=== PATIENT | female | born 1940 | race Caucasian/White ===

== ENCOUNTER 2023-12-03 09:42 | Emergency (ER) | payer OTHER, SELFPAY ==
[2023-12-03 09:46] VITALS: BP 121/65; PULSE 70; RESP 16; O2SAT 93
--- NOTE | 2023-12-03 09:53 | ECG_ITS ---
[facility] Test Date: 2023-12-03 Pat Name: Julissa Salazar Department: Room: Gender: Female Executive Chef Assistant: : 1940 Requested By: Mary Gonzalez Order Number: [id number] Juliana MD: George Flynn M.D. Measurements Intervals [place] Rate: 66 P: 62 [place]: 223 QRS: 50 QRSD: 81 T: 64 QT: 416 QTc: 438 Interpretive Statements SINUS RHYTHM WITH FIRST DEGREE AV BLOCK Compared to ECG 01/31/2019 21:06:38 First degree AV block now present ST (T wave) deviation no longer present Electronically Signed On 12-03-2023 16:33:46 CAKE MIXER by George Flynn M.D. [id number] f
--- NOTE | 2023-12-03 09:54 | XR_ITS ---
WS: [id number] Exam: XR chest 1V portable [id number] Date/Time of Exam: 12/03/2023 9:54 AM Reason For Exam: cough, COVID Comparison 01/05/2019. Lungs are clear and fully inflated. Normal cardiomediastinal silhouette. No pleural effusions. Region al bony elements are intact. Monitoring leads superimpose the chest. IMPRESSION: 1. No acute cardiopulmonary finding.
--- NOTE | 2023-12-03 10:05 | ED_ITS ---
HPI - General Adult 2 General: Chief complaint: Arrhythmia/Palpitations Stated complaint: irregular heart rate Time Seen by Provider: 12/03/23 09:47 Source: patient and EMS Mode of arrival: EMS Limitations: no limitations History of Present Illness: Patient is an 83-year-old female presents to ED today via EMS from her residential in [place] for complaints of nausea and vomiting. Patient reportedly began feeling nauseous yesterday evening. She states she vomited one time last night and another time this morning. She has not had any diarrhea. She does not complain of abdominal pain. long term report also stated when they checked her pulse it was irregular . EMS states during transport she was normal sinus but did have one episode of a sinus pause . Patient is currently on hospice. Her hospice care company is [employer].. Patient during my examination is complaining of feeling very cold and shivering. She reports some nasal congestion. She has not been running fevers. Documentation shows patient was diagnosed with COVID about two weeks ago. Onset (ago): day(s) (yesterday evening) Severity: mild Relieving factors: none Exacerbating factors: none Associated symptoms: Reports nausea, vomiting and other (chills); Deny chest pain, dyspnea, headache(s), malaise, rash, palpitations or syncope Treatments prior to arrival: none Review of Systems 2 Const: Reports: chills; Denies: fever(s), body aches, fatigue or malaise Eyes: Denies: change in vision, blurry vision, photophobia, floaters or seeing flashes ENMT: Reports: nasal congestion; Denies: throat pain, odynophagia, nasal discharge or sinus pain Card: Denies: chest pain, palpitations, irregular heart rhythm, edema, swelling of feet/ankles, lightheadedness, syncope, pre-syncope or dyspnea on exertion Resp: Denies: dyspnea, productive cough, non-productive cough or chest congestion GI: Reports: nausea and vomiting; Denies: abdominal pain, hematemesis, diarrhea or change in bowel habits : Denies: flank pain, difficulty voiding, dysuria, urinary frequency, urinary urgency or urinary hesitancy Musc: Denies: neck pain, back pain, extremity pain or joint pain Skin/Breast: Denies: rash Neuro: Denies: headache(s) or dizziness PFSH ED 2 PFSH: Medical History Other conjunctivitis Gastro-esophageal reflux disease without esophagitis Body mass index [BMI] 40.0-44.9, adult Morbid (severe) obesity due to excess calories Unspecified dementia, unspecified severity, with agitation Difficulty in walking, not elsewhere classified Alzheimer's disease with late onset Personal history of COVID-19 Dysphagia, oropharyngeal phase Muscle weakness (generalized) Aftercare following joint replacement surgery Angular blepharoconjunctivitis, bilateral Other reduced mobility Chest pain, unspecified Unilateral primary osteoarthritis, left knee Other symbolic dysfunctions Vitamin D deficiency, unspecified Unspecified osteoarthritis, unspecified site Other abnormal and inconclusive findings on diagnostic imaging of breast Surgical History 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 Cataract extraction status, left eye Presence of right artificial knee joint Physical Exam 2 Const: COMMON NORMALS: no acute distress, average body habitus, no limitations, alert and well nourished GENERAL APPEARANCE: cooperative O RIENTATION/CONSCIOUSNESS: Yes awake, Yes oriented to person, Yes oriented to place and Yes Other orientation findings (chronic dementia-at baseline per residential and hospice nurse) HENMT: COMMON NORMALS: normocephalic and atraumatic HEAD & SCALP: normal to inspection, normocephalic and atraumatic FACE & SINUS: normal facial exam Eye: GENERAL EYE: appearance normal, both eyes and all related structures Neck/C-Spine: COMMON NORMALS: full ROM and no lymphadenopathy GENERAL: Yes normal visual inspection Resp: COMMON NORMALS: normal respiratory effort and clear to auscultation bilaterally AUSCULTATION: clear to auscultation bilaterally Cardio: COMMON NORMALS: regular rate and regular rhythm RATE: regular rate RHYTHM: regular rhythm GI: COMMON NORMALS: Normal to inspection, nondistended, normoactive bowel sounds present, Soft to palpation, non-tender, No hepatosplenomegaly present and no masses PALPATION: Yes Soft to palpation and Yes No hepatosplenomegaly present : COMMON NORMALS: Yes no CVA tenderness BLADDER/KIDNEY EXAM: Yes no CVA tenderness Back/Pelvis: COMMON NORMALS: no CVA tenderness and thoracic and lumbar spine normal to inspection Extremity: COMMON NORMALS: normal to inspection, capillary refill normal, no clubbing, cyanosis or edema, no calf tenderness and no pedal edema GENERAL: Y es normal exam except as noted Neuro: SANDRA COMA SCALE: document GCS findings [place] coma scale eye opening: Spontaneous Sandra coma scale verbal response: Orientated [place] coma scale motor response: Obey commands [place] coma scale total score: 15 C OMMON NORMALS: moves all extremities, no focal motor deficits and no sensory deficits noted SENSORIUM/ORIENTATION: Yes alert, Yes oriented to person and Yes oriented to place Skin: COMMON NORMALS: no rashes or lesions noted GENERAL SKIN EXAM: no rashes or lesions noted Course 2 Vital Signs: Vital signs: Vital Signs Pulse Rate 83 12/03/23 12:39 Respiratory Rate 16 12/03/23 12:39 Blood Pressure 153/42 12/03/23 12:39 Pulse Oximetry 100 12/03/23 12:39 Oxygen Delivery Me thod Room Air 12/03/23 12:39 MDM - General Adult Medical Decision Making Patient is an 83-year-old female on hospice here from her residential for complaints of nausea and vomiting. She had 1 episode of vomiting last night as well as one episode this morning. long term report was that when they checked patient's pulse it was irregular . Patient has been in normal sinus on the monitor since arrival. She has no complaints of chest pain or shortness of breath. Her vital signs are stable upon arrival. Blood work overall is unremarkable. She has very minor elevations to her BUN/Cr at 31/1.3 with no recent comparisons. Initial potassium is slightly elevated at 5.4. After fluids this has came down to 4.8. No EKG changes. Her CXR is normal. Her baseline troponin is normal. Her UA does show evidence for infection with a cloudy appearance, trace leukocyte esterase, 40-55 WBCs and 4+ bacteria. She will be placed on antibiotics for this. Patient is stable to go back to residential at this time. Lab Data 12/03/23 10:17 12/03/23 14:18 Laboratory Results WBC 8.30 10^3/uL (3.29-11.43) 12/03/23 10:17 RBC 3.68 10^6/uL (3.85-5.65) L 12/03/23 10:17 Hgb 11.20 g/dL (11.27-16.99) L 12/03/23 10:17 Hct 35.3 % (36-47) L 12/03/23 10:17 MCV 95.9 fl (85-98) 12/03/23 10:17 MCH 30.4 pg (27-33) 12/03/23 10:17 MCHC 31.7 g/dL (30-55) 12/03/23 10:17 RDW 13.3 % (12.1-15.1) 12/03/23 10:17 Plt Count 216 10^3/cmm (157-399) 12/03/23 10:17 MPV 10.3 fL (7.4-10.4) 12/03/23 10:17 Neut % (Auto) 58.7 % 12/03/23 10:17 Lymph % (Auto) 25.7 % 12/03/23 10:17 [place] % (Auto) 8.7 % 12/03/23 10:17 Eos % (Auto) 5.7 % 12/03/23 10:17 Baso % (Auto) 0.8 % 12/03/23 10:17 Neut # (Auto) 4.88 10^3/uL (1.8-7.7) 12/03/23 10:17 Lymph # (Auto) 2.1 10^3/uL (0.8-4.8) 12/03/23 10:17 [place] # (Auto) 0.7 10^3/uL (0.2-0.9) 12/03/23 10:17 Eos # (Auto) 0.5 10^3/uL (0.0-0.8) 12/03/23 10:17 Baso # (Auto) 0.1 10^3/uL (0.0-0.1) 12/03/23 10:17 Nucleated RBC % (auto) 0 % 12/03/23 10:17 Nucleated RBCs # 0.0 /100WBC 12/03/23 10:17 Sodium 137 mmol/L (136-145) 12/03/23 10:17 Potassium 4.8 mmol/L (3.5-5.1) 12/03/23 14:18 Chloride 102 mmol/L (98-107) 12/03/23 10:17 Carbon Dioxide 24 mmol/L (22-29) 12/03/23 10:17 Anion Gap 16.4 (5-19) 12/03/23 10:17 BUN 31 mg/dL (8-23) H 12/03/23 10:17 Creatinine 1.3 mg/dL (0.5-0.9) H 12/03/23 10:17 GFR Calculation Not Reportable 12/03/23 10:17 Glucose 110 mg/dL (65-115) 12/03/23 10:17 POC Glucose 101 mg/dL (70-110) 12/03/23 10:16 Calculated Osmolality 291 mOsm/kg (285-295) 12/03/23 10:17 Calcium 10.0 mg/dL (8.5-10.5) 12/03/23 10:17 Total Bilirubin 0.4 mg/dL (0.15-1.2) 12/03/23 10:17 AST 14 U/L (0-32) 12/03/23 10:17 ALT 7 U/L (0-33) 12/03/23 10:17 Alkaline Phosphatase 73 U/L (35-105) 12/03/23 10:17 Troponin T Baseline 9 ng/L (0-10) 12/03/23 10:17 Total Protein 6.8 g/dL (6.6-8.7) 12/03/23 10:17 Albumin 3.7 g/dL (3.5-5.2) 12/03/23 10:17 Globulin 3.1 g/dL (1.3-4.6) 12/03/23 10:17 Lipase 68 U/L (13-60) H 12/03/23 10:17 Procalcitonin 0.05 ng/mL (0-0.5) 12/03/23 10:17 Urine Color Yellow (Yellow) 12/03/23 11:02 Urine Appearance Slightly cloudy (CLEAR) A 12/03/23 11:02 Urine pH 7 (5-7) 12/03/23 11:02 Ur Specific [place] 1.010 (1.005-1.030) 12/03/23 11:02 Urine Protein Neg (Negative) 12/03/23 11:02 Urine Glucose (UA) Norm (Normal) 12/03/23 11:02 Urine Ketones Negative (Negative) 12/03/23 11:02 Urine Blood Neg (Negative) 12/03/23 11:02 Urine Nitrate Negative (Negative) 12/03/23 11:02 Urine Bilirubin Neg (Negative) 12/03/23 11:02 Urine Urobilinogen Neg mg/dL (Negative) 12/03/23 11:02 Ur Leukocyte Esterase Trace (Negative) H 12/03/23 11:02 Urine RBC Rare /hpf (0-2) 12/03/23 11:02 Urine WBC 40-55 /hpf (0-5) H 12/03/23 11:02 Ur Squamous Epith Cells 0-4 /hpf (0-5) H 12/03/23 11:02 Amorphous Sediment Not Reportable 12/03/23 11:02 Urine Bacteria 4+ /hpf (NONE) H 12/03/23 11:02 All radiology interpretation(s) finalized by discharge Discharge Plan Discharge Patient Disposition: Home Clinical Impression: Acute UTI Condition: Stable Prescriptions: New cephalexin 500 mg capsule 500 mg PO Q6H 7 Days Qty: 28 0RF No Action acetaminophen 325 mg capsule 650 mg PO Q4H PRN (Reason: PAIN OR ELEVATED TEMP) atorvastatin 10 mg tablet 10 mg PO QPM bisacodyl 10 mg suppository See Rx Instructions .ROUTE .COMPLEX Rx Instructions: Insert 1 suppository rectally every 24 hours as needed for constipation. May admininster if no results from Milk of magnesium or give bisacodyl tablets. bisacodyl [C-Lax Laxative (bisacodyl)] 5 mg tablet,delayed release (DR/EC) See Rx Instructions .ROUTE .COMPLEX Rx Instructions: Take 4 tablets (20 mg) orally every 24 hours as needed for constipation if no results from Milk of magnesium or may give bisacodyl suppository. donepezil 10 mg tablet,disintegrating 10 mg PO BEDTIME polysaccharide iron complex [Ferrex 150] 150 mg iron capsule 150 mg PO BID lisinopril 10 mg tablet 10 mg PO BID loratadine 10 mg tablet 10 mg PO DAILY memantine 10 mg tablet 10 mg PO TID magnesium hydroxide [Milk of Magnesia] 400 mg/5 mL suspension 30 ml PO BID PRN (Reason: Constipation) multivitamin with iron-mineral Tablet 1 tab PO DAILY cholecalciferol (vitamin D3) 125 mcg (5,000 unit) capsule 125 mcg PO DAILY quetiapine 25 mg tablet 25 mg PO DAILY lorazepam 0.5 mg tablet 0.5 mg PO Q6H PRN (Reason: Agitation) Discharge Orders: Discharge ED (Routine); Ordered 12/03/23 Ordered By: Mary Gonzalez Referrals: Stephanie Cobb NP [Nurse Practitioner] - Patient Instructions: Urinary Tract Infection in Women (DC), Urinary Tract Infection in Older Adults (ED) Coding Level of Care Code ED Information Officer for Vanessa Mcbride
[2023-12-03 10:11] VITALS: BP 111/76; PULSE 73; RESP 16; O2SAT 97
[2023-12-03 10:19] LABS: Glucose Point of Care 101 mg/dL (70-110)
[2023-12-03 10:24] LABS: Basophils # 0.1 10^3/uL (0.0-0.1); Basophils % 0.8 %; Eosinophils # 0.5 10^3/uL (0.0-0.8); Eosinophils % 5.7 %; Hematocrit 35.3 % (36-47); Lymphocytes # 2.1 10^3/uL (0.8-4.8); Lymphocytes % 25.7 %; Mean Corpuscular HGB Conc 31.7 g/dL (30-55); Mean Corpuscular Hemoglobin 30.4 pg (27-33); Mean Corpuscular Volume 95.9 fl (85-98); Mean Platelet Volume 10.3 fL (7.4-10.4); Monocytes # 0.7 10^3/uL (0.2-0.9); Monocytes % 8.7 %; Neutrophils # 4.88 10^3/uL (1.8-7.7); Neutrophils % 58.7 %; Nucleated Red Blood Cells % 0 %; Platelet Count 216 10^3/cmm (157-399); Red Blood Count 3.68 10^6/uL (3.85-5.65); Red Cell Distribution Width 13.3 % (12.1-15.1)
[2023-12-03 10:49] LABS: Troponin(5th) Baseline 9 ng/L (0-10)
[2023-12-03 10:50] LABS: Alanine Aminotransferase 7 U/L (0-33); Albumin Level 3.7 g/dL (3.5-5.2); Alkaline Phosphatase 73 U/L (35-105); Anion Gap 16.4 (5-19); Aspartate Amino Transferase 14 U/L (0-32); Blood Urea Nitrogen 31 mg/dL (8-23); Carbon Dioxide 24 mmol/L (22-29); Chloride 102 mmol/L (98-107); Globulin 3.1 g/dL (1.3-4.6); Glucose 110 mg/dL (65-115); Lipase 68 U/L (13-60); Osmolality Calculated 291 mOsm/kg (285-295); Potassium 5.4 mmol/L (3.5-5.1); Sodium 137 mmol/L (136-145); Total Bilirubin 0.4 mg/dL (0.15-1.2); Total Protein 6.8 g/dL (6.6-8.7)
[2023-12-03 10:55] LABS: Procalcitonin 0.05 ng/mL (0-0.5)
--- NOTE | 2023-12-03 10:55 | PC.PHAR ---
12/03/23- PT HAS 2 ORDERS FOR ACETAMINOPHEN ON JAN. ONE IS FOR PAIN AND THE OTHER IS FOR ELEVATED TEMP. PUT TOGETHER ONE ORDER TO READ 2 TABLETS BY MOUTH EVERY 4 HOURS NEEDED FOR PAIN OR ELEVATED TEMP, TO REDUCE DUPLICATION OR CONFUSION.
[2023-12-03 11:23] LABS: Add Urine Culture? Yes; Add Urine Microscopic? YES; Bacteria Urine 4+ /hpf; Bilirubin Urine Neg (Negative); Blood Urine Neg (Negative); Glucose Urine UA Norm (Normal); Ketones Urine Negative (Negative); Leukocyte Esterase Urine Trace (Negative); Nitrate Urine Negative (Negative); Protein Urine Neg (Negative); RBC Urine RARE /hpf (0-2); Squamous Epithelial Cell Urine 0-4 /hpf (0-5); Urine Appearance Slightly Cloudy (CLEAR); Urine Color Yellow (Yellow); Urobilinogen Urine Neg (Negative); WBC Urine 40-55 /hpf (0-5); pH Urine 7 (5-7)
[2023-12-03] MEDS: sodium chloride 0.9% 1,000 ML 999 ML IV (11:49)
[2023-12-03] MEDS: cefTRIAXone 1,000 MG in sodium chloride 0.9% (plus) 50 ML 100 MG IV (11:49)
--- NOTE | 2023-12-03 11:57 | ECG_ITS ---
[facility] Test Date: 2023-12-03 Pat Name: Julissa Salazar Department: Room: Gender: Female Raftsman: : 1940 Requested By: Mary Gonzalez Order Number: [id number] Juliana MD: George Flynn M.D. Measurements Intervals [place] Rate: 72 P: 80 [place]: 209 QRS: 52 QRSD: 81 T: 78 QT: 399 QTc: 438 Interpretive Statements SINUS RHYTHM Compared to ECG 01/31/2019 21:06:38 ST (T wave) deviation no longer present Electronically Signed On 12-03-2023 12:21:05 MERCERIZING RANGE FEEDER by George Flynn M.D. [id number]
[2023-12-03 12:39] VITALS: BP 153/42; PULSE 83; RESP 16; O2SAT 100
[2023-12-03 14:00] VITALS: PULSE 81; O2SAT 95
[2023-12-03 14:51] LABS: Potassium 4.8 mmol/L (3.5-5.1)
--- NOTE | 2023-12-03 15:54 | ECG_ITS ---
[facility] Test Date: 2023-12-03 Pat Name: Julissa Salazar Department: Room: Gender: Female Intensive Care Unit Registered Nurse: : 1940 Requested By: Mary Gonzalez Order Number: [id number] Juliana MD: George Flynn M.D. Measurements Intervals [place] Rate: 65 P: 80 [place]: 209 QRS: 53 QRSD: 83 T: 78 QT: 393 QTc: 409 Interpretive Statements SINUS RHYTHM Compared to ECG 12/03/2023 11:57:42 No significant changes Electronically Signed On 12-04-2023 6:08:23 FOREST MANAGER by George Flynn M.D. [id number]
== END 2023-12-03 22:36 | disposition home or self-care (01) ==
PROVIDERS: Emergency Provider Physician Assistant; PCP Family Medicine
DX: N39.0 Urinary tract infection, site not specified (principal); G30.1 Alzheimer's disease with late onset; F02.80 Dementia in other diseases classified elsewhere, unspecified severity, without behavioral disturbance, psychotic disturbance, mood disturbance, and anxiety
CPT/HCPCS: 36415; 36416; 71045; 80053; 81001; 82962; 83690; 84132; 84145; 84484; 85025; 87077; 87086; 87186; 93005; 96374; 99285; J0696; J7030

== ENCOUNTER → 2025-10-09 12:21 | Outpatient (BNVA) | payer MEDICARE, MEDICAID, SELFPAY | PROVIDERS: PCP Nurse Practitioner Family; Visit Provider Nurse Practitioner Family | DX: M54.9 Dorsalgia, unspecified (principal); G89.29 Other chronic pain; F02.80 Dementia in other diseases classified elsewhere, unspecified severity, without behavioral disturbance, psychotic disturbance, mood disturbance, and anxiety | CPT/HCPCS: 81000; 87086 ==